=== PATIENT | female | born 1945 | race Caucasian/White ===

== ENCOUNTER → 2019-12-28 | Outpatient (CLI) | payer MEDICARE ==
--- NOTE | 2019-12-28 11:31 | RAD ---
BILATERAL SCREENING MAMMOGRAM History: Routine screening. Comparison: 07/08/2012 and subsequent exams up until 05/27/2016. Technique: Routine bilateral digital mammogram views were obtained. Findings: Breast Tissue Density B : There are scattered areas of fibroglandular density. There are no dominant masses, suspicious microcalcifications, or architectural distortion. IMPRESSION: No mammographic evidence of malignancy. Recommend routine screening. BI-RADS category 1: Negative. The images were reviewed with computer aided detection. Patient information is entered into the reminder system with a target due date for the next screening mammogram. Mammography is the most sensitive method for finding small breast cancers, but it does not detect them all and is not a substitute for careful clinical examination. A negative mammogram does not negate a clinically suspicious finding and should not result in delay in biopsying a clinically suspicious abnormality. "Our facility is accredited by the [employer] Mammography [employer]." Electronically signed by: Baljeet Lazcano MD (12/28/2019 11:28 AM) [id number]
== END | disposition home or self-care (01) ==
LOC: MAMMO 10:27
PROVIDERS: ATTEND Family Medicine
DX: Z12.31 Encounter for screening mammogram for malignant neoplasm of breast (principal)
CPT/HCPCS: 77067

== ENCOUNTER → 2020-12-26 | Outpatient (CLI) | payer MEDICARE ==
--- NOTE | 2020-12-26 10:49 | RAD ---
INDICATION: Screening for osteopenia/osteoporosis. Reason: SCREENING / Spl. Instructions: / History : COMPARISON: None. TECHNIQUE: Bone densitometry was performed through the distal forearm and proximal femur. IMPRESSION: Distal forearm: BMD: 0.6 T-Score: -1.6 Range: Osteopenic Proximal Femur: BMD: 0.74 T-Score: -1.7 Range: Osteopenic World Health Organization Criteria for Bone Density: T-Score: > -1.0: Normal Range < -1.0 to -2.5: Osteopenic Range < -2.5: Osteoporotic Range Electronically signed by: Jori Vickers MD (12/26/2020 10:46 AM) [id number]
--- NOTE | 2020-12-28 19:29 | RAD ---
DATE: 12/26/2020 EXAM: MAMMO RACHEL SCREENING BILATERAL HISTORY: Screening COMPARISON: Prior exams dating back to 2016 This study was interpreted with the benefit of Computerized Aided Detection (CAD). Breast Density: SCATTERED The breast parenchyma shows scattered fibroglandular densities. Breast parenchyma level B. FINDINGS: No mass, suspicious calcification, or architectural distortion in either breast. IMPRESSION: No evidence of malignancy. BI-RADS CATEGORY: 1 NEGATIVE RECOMMENDED FOLLOW-UP: 12M 12 MONTH FOLLOW-UP PQRS compliance statement: Patient information was entered into a reminder system with a target due date for the next mammogram. Mammography is a sensitive method for finding small breast cancers, but it does not detect them all and is not a substitute for careful clinical examination. A negative mammogram does not negate a clinically suspicious finding and should not result in delay in biopsying a clinically suspicious abnormality. "Our facility is accredited by the [employer] Mammography [employer]."
== END ==
LOC: MAMMO 09:50
PROVIDERS: ATTEND Family Medicine
DX: Z12.31 Encounter for screening mammogram for malignant neoplasm of breast (principal); M85.89 Other specified disorders of bone density and structure, multiple sites; M81.0 Age-related osteoporosis without current pathological fracture
CPT/HCPCS: 77063; 77067; 77080; 77081